=== PATIENT | female | born 1950 | race Caucasian/White ===

== ENCOUNTER 2017-04-09 05:33 | Inpatient (IN) ==
[2017-04-09] MEDS ORDERED: ceFAZolin 1,000 MG in SYRINGE 1 EACH IV ONE (06:00)
[2017-04-09] MEDS ORDERED: VANCOMYCIN INJ 1,000 MG in SODIUM CHLORIDE 0.9% 250 ML IV ONE (06:00)
[2017-04-09] MEDS ORDERED: VANCOMYCIN 1,000 MG VIAL ONE (06:01)
[2017-04-09] MEDS ORDERED: ceFAZolin 1,000 MG VIAL ONE (06:01)
[2017-04-09] MEDS ORDERED: DIAZEPAM 5 MG TABLET PO ONE (06:26)
[2017-04-09] MEDS ORDERED: FAMOTIDINE 20 MG TABLET PO ONE (06:26)
[2017-04-09] MEDS ORDERED: SCOPOLAMINE 1.5 MG PATCH TRANSDERM ONE ×2 (06:37→06:42)
[2017-04-09] MEDS ORDERED: FAMOTIDINE 20 MG TABLET ONE (06:42)
[2017-04-09] MEDS ORDERED: DIAZEPAM 5 MG TABLET ONE (06:42)
[2017-04-09] MEDS: LACTATED RINGERS 1,000 ML IV SCH ×3 (07:47→22:44)
[2017-04-09] MEDS ORDERED: BACITRACIN OINT 0.9 GM PACK TOP ONE (09:44)
[2017-04-09] MEDS ORDERED: TRANEXAMIC ACID 1,000 MG/10 ML VIAL IV ONE (09:44)
[2017-04-09] MEDS ORDERED: SEVOFLURANE 1 UNIT/15 MINUTE INH ONE (12:37)
[2017-04-09] MEDS ORDERED: ROPIVACAINE 0.5% 30 ML VIAL ONE (12:37)
[2017-04-09] MEDS ORDERED: fentaNYL 100 MCG/2 ML VIAL ONE (12:38)
[2017-04-09] MEDS ORDERED: MIDAZOLAM 2 MG/2 ML VIAL ONE (12:38)
[2017-04-09] MEDS ORDERED: ACETAMINOPHEN 1,000 MG/100 ML VIAL IV ONE (12:38)
[2017-04-09] MEDS ORDERED: HYDROmorphone 2 MG/1 ML VIAL ONE (12:38)
[2017-04-09] MEDS ORDERED: LACTATED RINGERS 1,000 ML IV ONE (12:39)
[2017-04-09] MEDS ORDERED: ROCURONIUM 100 MG/10 ML VIAL IV ONE (12:39)
[2017-04-09] MEDS ORDERED: SODIUM CHLORIDE 0.9% 100 ML IV ONE (12:39)
[2017-04-09] MEDS ORDERED: PROPOFOL 200 MG/20 ML VIAL IV ONE (12:41)
[2017-04-09] MEDS ORDERED: DEXAMETHASONE 10 MG/1 ML VIAL ONE (12:41)
[2017-04-09] MEDS ORDERED: GLYCOPYRROLATE 0.4 MG/2 ML VIAL ONE (12:42)
[2017-04-09] MEDS ORDERED: NEOSTIGMINE 10 MG/10 ML VIAL ONE (12:42)
[2017-04-09] MEDS ORDERED: ONDANSETRON 4 MG/2 ML VIAL ONE (12:42)
[2017-04-09] MEDS ORDERED: PROPOFOL 500 MG/50 ML BOTTLE IV ONE (12:42)
[2017-04-09] MEDS ORDERED: ONDANSETRON 4 MG/2 ML VIAL IV PRN (13:04)
[2017-04-09] MEDS ORDERED: ZALEPLON 5 MG CAPSULE PO PRN (13:04)
[2017-04-09] MEDS ORDERED: oxyCODONE IR 5 MG TABLET PO PRN ×2 (13:04)
[2017-04-09] MEDS ORDERED: diphenhydrAMINE CAP 25 MG CAPSULE PO PRN (13:04)
[2017-04-09] MEDS ORDERED: MAGNESIUM HYDROXIDE SUSP 30 ML UDCUP PO PRN (13:04)
[2017-04-09] MEDS ORDERED: MORPHINE 10 MG/1 ML VIAL IV PRN ×2 (13:04)
[2017-04-09 14:39] LABS: Basophils # 0.1 10*3/uL (0.0-0.2); Basophils % 0.5 % (0.0-0.8); Eosinophils # 0.2 10*3/uL (0.0-0.87); Eosinophils % 1.3 % (0.00-10.9); Hemoglobin 12.4 GM/DL (12.0-16.0); Immature Granulocytes % 0.5 %; Immature Granulocytes Absolute 0.06 #; Lymphocytes # 1.1 10*3/uL (1.4-4.0); Lymphocytes % 8.4 % (21.3-54.2); Mean Corpuscular HGB Conc 33.5 GM/DL (32-36); Mean Corpuscular Hemoglobin 30 PG (27-34); Mean Platelet Volume 10.8 FL (9.6-12.0); Monocytes # 0.2 10*3/uL (0.11-0.8); Monocytes % 1.8 % (1.7-12.7); Neutrophils # 11.6 10*3/uL (1.4-7.4); Neutrophils % 87.5 % (38.7-73.9); Platelet Count 203 T/CUMM (130-400); Red Blood Count 4.11 MC/CUMM (3.8-5.5); White Blood Count 13.3 T/CUMM (4-12)
[2017-04-09] MEDS: KETOROLAC 30 MG/1 ML VIAL IV SCH ×2 (14:45→20:55)
[2017-04-09 14:52] LABS: Calcium 8.6 MG/DL (8.5-10.1); Osmolality,Calculated 286.1 MOS/KG (273-304); Potassium 3.9 MMOL/L (3.5-5.1)
[2017-04-09] MEDS: ceFAZolin 1,000 MG in SYRINGE 1 EACH IV SCH (18:27)
[2017-04-09] MEDS: ACETAMINOPHEN 500 MG TABLET PO SCH ×2 (18:27→22:42)
[2017-04-09] MEDS: DOCUSATE SODIUM 100 MG CAPSULE PO SCH (20:55)
[2017-04-09] MEDS: ROSUVASTATIN 10 MG TABLET PO SCH (20:55)
[2017-04-10] MEDS: ceFAZolin 1,000 MG in SYRINGE 1 EACH IV SCH (01:18)
[2017-04-10] MEDS: KETOROLAC 30 MG/1 ML VIAL IV SCH ×2 (01:18→08:57)
[2017-04-10] MEDS: ACETAMINOPHEN 500 MG TABLET PO SCH ×2 (04:54→11:37)
[2017-04-10 05:38] LABS: Basophils % 0.1 % (0.0-0.8); Immature Granulocytes % 0.5 %; Immature Granulocytes Absolute 0.06 #; Lymphocytes # 0.9 10*3/uL (1.4-4.0); Lymphocytes % 6.6 % (21.3-54.2); Mean Corpuscular Hemoglobin 30 PG (27-34); Mean Platelet Volume 10.1 FL (9.6-12.0); Monocytes # 0.5 10*3/uL (0.11-0.8); Neutrophils # 11.5 10*3/uL (1.4-7.4); Neutrophils % 88.8 % (38.7-73.9); Platelet Count 229 T/CUMM (130-400); Red Blood Count 3.41 MC/CUMM (3.8-5.5); Red Cell Distribution Width 12.9 % (9.3-17.3)
[2017-04-10 05:48] LABS: Hemoglobin 10.2 GM/DL (12.0-16.0)
[2017-04-10 06:02] LABS: Osmolality,Calculated 286.3 MOS/KG (273-304); Potassium 3.9 MMOL/L (3.5-5.1)
[2017-04-10] MEDS: LACTATED RINGERS 1,000 ML IV SCH (07:44)
[2017-04-10] MEDS: MULTIVITAMIN (CENTRUM) TABLET PO SCH (08:59)
[2017-04-10] MEDS: DOCUSATE SODIUM 100 MG CAPSULE PO SCH ×2 (08:59→20:36)
[2017-04-10] MEDS: FONDAPARINUX 2.5 MG/0.5 ML SYRINGE SUBCUT SCH (08:59)
[2017-04-10] MEDS: MULTIVITAMIN (BEROCCA) TABLET PO SCH (08:59)
[2017-04-10] MEDS: VITAMIN E 400 UNIT CAPSULE PO SCH (08:59)
[2017-04-10] MEDS: CHOLECALCIFEROL 400 UNIT TABLET PO SCH (08:59)
[2017-04-10] MEDS: VALSARTAN 160 MG TABLET PO SCH (09:01)
[2017-04-10] MEDS: METOPROLOL SUCCINATE XL 25 MG TABLET PO SCH (09:01)
[2017-04-10] MEDS: amLODIPine 10 MG TABLET PO SCH (09:01)
[2017-04-10] MEDS ORDERED: ACETAMINOPHEN 325 MG TABLET PO PRN (13:05)
[2017-04-10] MEDS: CELECOXIB 200 MG CAPSULE PO SCH (16:20)
[2017-04-10] MEDS: ROSUVASTATIN 10 MG TABLET PO SCH (20:36)
[2017-04-11 05:27] LABS: Basophils % 0.3 % (0.0-0.8); Eosinophils # 0.1 10*3/uL (0.0-0.87); Eosinophils % 0.9 % (0.00-10.9); Hemoglobin 10.6 GM/DL (12.0-16.0); Immature Granulocytes % 0.5 %; Immature Granulocytes Absolute 0.06 #; Lymphocytes # 2.7 10*3/uL (1.4-4.0); Lymphocytes % 22.5 % (21.3-54.2); Mean Corpuscular HGB Conc 34.2 GM/DL (32-36); Mean Corpuscular Hemoglobin 30 PG (27-34); Mean Corpuscular Volume 88.1 FL (87-102); Mean Platelet Volume 9.7 FL (9.6-12.0); Monocytes # 0.8 10*3/uL (0.11-0.8); Neutrophils # 8.2 10*3/uL (1.4-7.4); Neutrophils % 68.8 % (38.7-73.9); Platelet Count 231 T/CUMM (130-400); Red Blood Count 3.52 MC/CUMM (3.8-5.5); Red Cell Distribution Width 13.5 % (9.3-17.3); White Blood Count 11.9 T/CUMM (4-12)
[2017-04-11] MEDS: METOPROLOL SUCCINATE XL 25 MG TABLET PO SCH (09:52)
[2017-04-11] MEDS: FONDAPARINUX 2.5 MG/0.5 ML SYRINGE SUBCUT SCH (09:52)
[2017-04-11] MEDS: VALSARTAN 160 MG TABLET PO SCH (09:52)
[2017-04-11] MEDS: VITAMIN E 400 UNIT CAPSULE PO SCH (09:53)
[2017-04-11] MEDS: CHOLECALCIFEROL 400 UNIT TABLET PO SCH (09:53)
[2017-04-11] MEDS: DOCUSATE SODIUM 100 MG CAPSULE PO SCH (09:53)
[2017-04-11] MEDS: CELECOXIB 200 MG CAPSULE PO SCH (09:53)
[2017-04-11] MEDS: MULTIVITAMIN (BEROCCA) TABLET PO SCH (09:53)
[2017-04-11] MEDS: amLODIPine 10 MG TABLET PO SCH (09:53)
[2017-04-11] MEDS: MULTIVITAMIN (CENTRUM) TABLET PO SCH (09:53)
[2017-04-11 11:52] VITALS: BP 154/71
== END 2017-04-11 15:02 | disposition home health service (06) | DRG 470 ==
LOC: N.SDSINP 05:33 → N.3E 13:25
PROVIDERS: ADMIT Orthopaedic Surgery; ATTEND Orthopaedic Surgery